=== PATIENT | female | born 1970 | race Two or more races ===

== ENCOUNTER 2016-10-22 01:14 | Emergency (ER) | payer OTHER ==
[2016-10-22] MEDS ORDERED: MAALOX/LIDO2%VISC/SIMETHICONE 40 ML BOT ONE (01:43)
[2016-10-22] MEDS ORDERED: DICYCLOMINE HCL 10 MG CAPSULE ONE (01:43)
[2016-10-22] MEDS ORDERED: ONDANSETRON 4 MG ODT TAB ONE (01:43)
[2016-10-22] MEDS ORDERED: HYDROCODONE/ACETAMINOPHEN 5/325MG TABLET ONE (03:01)
--- NOTE | 2016-10-22 07:57 | RAD ---
ACUTE ABDOMINAL SERIES HISTORY: Constipation. Upright and supine radiographs of the abdomen were acquired. Upright chest radiograph also acquired. COMPARISON: None. FINDINGS: BOWEL GAS PATTERN: Mild to moderate fecal load. Minor gas within the rectum. No abnormal small bowel dilatation. AIR-FLUID LEVELS: None identified. FREE AIR: No gross free air. ABDOMINOPELVIC CALCIFICATIONS: No abnormal calcifications noted. Evidence of prior cholecystectomy. LUNG ROSENBERG: Grossly clear. PLEURAL EFFUSION: None. OSSEOUS STRUCTURES: No destructive lesions. IMPRESSION: Mild to moderate fecal load with nonobstructive bowel gas pattern. No free air. Evidence of prior cholecystectomy.
== END 2016-10-22 03:05 | disposition home or self-care (01) ==
LOC: ED 01:14
DX: R10.9 Unspecified abdominal pain (principal)
CPT/HCPCS: 74022; 99283 ×2; A9270 ×4